=== PATIENT | female | born 1980 | race Caucasian/White ===

== ENCOUNTER 2017-05-10 11:17 | Day surgery (SDC) | payer OTHER ==
[~2017-05-10] VITALS: Ht 165.1 cm; Wt 59.9 kg
[~2017-05-10 11:17] MED LIST: ADVAIR 250/501 DISK IH; IMITREX100 MG PO; MOTRIN800 MG PO; PREDNISONE10 MG PO; PROVENTIL,2.5 MG/3 M IH; TOPAMAX50 MG PO; VENTOLIN HFA18 GM IH; VISTARIL50 MG PO; VITAMIN D-32000 UNI2 PO; VYVANSE40 MG PO
[2017-05-10 12:10] LABS: HEMATOCRIT 43.5 % (36.0-46.0); MCH 31.7 PG (29.0-34.0); MCHC 33.6 G/DL (30.0-36.0); MCV 94.6 FL (83-99); MEAN PLAT.VOLUME 8.3 uM^3 (9.5-12.4); PLATELET COUNT 388 K/uL (156-360); RBC DIS.WIDTH-CV 12.7 % (11.8-14.6); RBC DIS.WIDTH-SD 44.1 % (39-53); WHITE BLOOD COUNT 14.8 K/uL (4.1-10.2)
[2017-05-10 12:12] VITALS: BP 123/83
[2017-05-10 12:16] LABS: INTER. NORMALIZED RATIO 0.9; PROTHROMBIN TIME 10.6 SEC (10.2-12.9)
[2017-05-10 12:18] LABS: PTT 26.1 SEC (25-37)
[2017-05-10 12:25] LABS: TOTAL BILIRUBIN 0.3 mg/dL (0.0-1.0)
[2017-05-10 12:26] LABS: ALKALINE PHOSPHATASE 75 IU/L (3-129)
[2017-05-10 12:28] LABS: DIRECT BILIRUBIN 0.1 mg/dL (0.0-0.3)
[2017-05-10] MEDS ORDERED: OXAYDO5 MG PO (14:59)
[2017-05-10] MEDS ORDERED: MOTRIN600 MG PO ×2 (14:59→15:46)
[2017-05-10] MEDS ORDERED: ROXICODONE5 MG PO ×2 (15:01→15:46)
[2017-05-10] MEDS ORDERED: MOTRIN800 MG PO (15:03)
[2017-05-10 16:15] VITALS: BP 118/76
[2017-05-10 16:50] VITALS: BP 113/74
[2017-05-12 17:31] LABS: INTERNAL CONTROL VALID? YES
== END 2017-05-10 17:07 | disposition home or self-care (01) ==
LOC: SDC 11:17
PROVIDERS: Surgery
PROC: 0WUF0JZ Supplement Abdominal Wall with Synthetic Substitute, Open Approach (ICD-10-PCS; principal; 2017-05-10)
DX: K43.6 Other and unspecified ventral hernia with obstruction, without gangrene (principal); J45.909 Unspecified asthma, uncomplicated; K21.0 Gastro-esophageal reflux disease with esophagitis; B18.2 Chronic viral hepatitis C; F41.1 Generalized anxiety disorder; D63.8 Anemia in other chronic diseases classified elsewhere; F17.210 Nicotine dependence, cigarettes, uncomplicated
CPT/HCPCS: 80076; 84703; 85027; 85610; 85730; C1781; J0330; J0690; J1100; J1170; J1720; J1885; J2250; J2405; J3010; S0020

== ENCOUNTER 2017-05-20 23:04 | Inpatient (IN) | payer OTHER ==
[~2017-05-20] VITALS: Ht 162.6 cm; Wt 63.0 kg
[~2017-05-20 23:04] MED LIST changes: +MOTRIN600 MG PO; +OXAYDO5 MG PO; +ROXICODONE5 MG PO
[2017-05-21 00:05] LABS: HEMATOCRIT 43.7 % (36.0-46.0); MCH 31.6 PG (29.0-34.0); MCHC 34.1 G/DL (30.0-36.0); MCV 92.8 FL (83-99); MEAN PLAT.VOLUME 8.6 uM^3 (9.5-12.4); PLATELET COUNT 401 K/uL (156-360); RBC DIS.WIDTH-CV 12.1 % (11.8-14.6); RED BLOOD COUNT 4.71 M/uL (3.80-5.20); WHITE BLOOD COUNT 25.1 K/uL (4.1-10.2)
[2017-05-21 00:17] LABS: CHLORIDE 104 mEq/L (99-109); POTASSIUM 3.3 mEq/L (3.7-5.4); SODIUM 139 mEq/L (136-147)
[2017-05-21 00:19] LABS: GLUCOSE 104 mg/dL (70-99)
[2017-05-21 00:20] LABS: ANION GAP 12 MEQ/L (2-14)
[2017-05-21 00:21] LABS: TOTAL BILIRUBIN 0.5 mg/dL (0.0-1.0)
[2017-05-21 00:23] LABS: ALKALINE PHOSPHATASE 110 IU/L (3-129); GFR ESTIMATE (CALCULATED) > 59 mL/min/
[2017-05-21 00:24] LABS: UREA NITROGEN (BUN) 15 mg/dL (9-23)
[2017-05-21 00:32] LABS: QUANTITATIVE HCG < 4.0 MIU/ML
[2017-05-21 00:49] LABS: ADD MIUA? YES; BILIRUBIN NEGATIVE; BLOOD NEGATIVE; COLOR YELLOW ((YELLOW)); GLUCOSE (STRIP) NEGATIVE; KETONES NEGATIVE; LEUKOCYTES NEGATIVE; NITRITE NEGATIVE; PROTEIN (STRIP) 30; SPECIFIC GRAVITY 1.025 (1.000-1.030)
[2017-05-21 00:56] LABS: BACTERIA RARE /HPF; EPITHELIAL CELLS 1+ /HPF; MUCUS TRACE /LPF; UCUL ADDED? NO; WHITE BLOOD CELLS 0-5 /HPF (0-5)
[2017-05-21 08:00] VITALS: BP 90/53
[2017-05-21 13:23] LABS: HEMATOCRIT 37.1 % (36.0-46.0); MCH 30.9 PG (29.0-34.0); MCHC 32.6 G/DL (30.0-36.0); MCV 94.6 FL (83-99); MEAN PLAT.VOLUME 8.7 uM^3 (9.5-12.4); PLATELET COUNT 307 K/uL (156-360); RBC DIS.WIDTH-CV 12.1 % (11.8-14.6); RBC DIS.WIDTH-SD 42.3 % (39-53); RED BLOOD COUNT 3.92 M/uL (3.80-5.20); WHITE BLOOD COUNT 18.7 K/uL (4.1-10.2)
[2017-05-21 16:08] VITALS: BP 116/60
[2017-05-21 20:00] VITALS: BP 103/58
[2017-05-22] VITALS (7 sets, daily range): BP systolic 93–108; BP diastolic 52–67
[2017-05-22 09:49] LABS: HEMATOCRIT 36.8 % (36.0-46.0); MCH 30.6 PG (29.0-34.0); MCHC 32.3 G/DL (30.0-36.0); MCV 94.6 FL (83-99); MEAN PLAT.VOLUME 8.6 uM^3 (9.5-12.4); PLATELET COUNT 339 K/uL (156-360); RBC DIS.WIDTH-CV 12.3 % (11.8-14.6); RBC DIS.WIDTH-SD 42.5 % (39-53); RED BLOOD COUNT 3.89 M/uL (3.80-5.20); WHITE BLOOD COUNT 15.1 K/uL (4.1-10.2)
[2017-05-22] MEDS ORDERED: ADVAIR 250/501 DISK IH (15:04)
[2017-05-22 18:01] LABS: BICARBONATE 25.3 mEq/L (22-26); CARBOXY HGB 2.1 % (0-5); METHEMOGLOBIN 1.6 % (0-1.5); PCO2 48 mm Hg (35-45); PO2 58 mm Hg (80-100); pH 7.33 (7.35-7.45)
[2017-05-22 18:02] LABS: COMMENTS - BLOOD GASES C+; DEVICE AMBU; SITE RR
[2017-05-22 18:13] LABS: HEMATOCRIT 36.1 % (36.0-46.0); MCH 30.6 PG (29.0-34.0); MCHC 32.7 G/DL (30.0-36.0); MCV 93.8 FL (83-99); MEAN PLAT.VOLUME 8.4 uM^3 (9.5-12.4); PLATELET COUNT 424 K/uL (156-360); RBC DIS.WIDTH-CV 12.2 % (11.8-14.6); RBC DIS.WIDTH-SD 42.2 % (39-53); RED BLOOD COUNT 3.85 M/uL (3.80-5.20); WHITE BLOOD COUNT 18.7 K/uL (4.1-10.2)
[2017-05-22 18:22] LABS: POINT-OF-CARE METER ID UU14149397
[2017-05-22 18:27] LABS: ANION GAP 10 MEQ/L (2-14); CHLORIDE 108 MEQ/L (99-109); POTASSIUM 3.8 MEQ/L (3.7-5.4); SAMPLE HEMOLYSIS CHECK 0; SAMPLE ICTERIC CHECK 0; SAMPLE LIPEMIA CHECK 0; SODIUM 141 MEQ/L (136-147)
[2017-05-22 18:33] LABS: GFR ESTIMATE (CALCULATED) > 59 mL/min/; GLUCOSE 114 mg/dL (70-99); UREA NITROGEN (BUN) 9 mg/dL (9-23)
[2017-05-23 04:56] VITALS: BP 98/68
[2017-05-23 05:56] LABS: HEMATOCRIT 30.5 % (36.0-46.0); MCH 31.6 PG (29.0-34.0); MCHC 33.4 G/DL (30.0-36.0); MCV 94.4 FL (83-99); MEAN PLAT.VOLUME 8.7 uM^3 (9.5-12.4); PLATELET COUNT 365 K/uL (156-360); RBC DIS.WIDTH-CV 12.2 % (11.8-14.6); RBC DIS.WIDTH-SD 41.9 % (39-53); RED BLOOD COUNT 3.23 M/uL (3.80-5.20); WHITE BLOOD COUNT 13.6 K/uL (4.1-10.2)
[2017-05-23 06:08] VITALS: BP 105/68
[2017-05-23 06:29] LABS: ALKALINE PHOSPHATASE 165 IU/L (3-129); ANION GAP 8 MEQ/L (2-14); CHLORIDE 109 MEQ/L (99-109); DIRECT BILIRUBIN 0.2 mg/dL (0.0-0.3); GFR ESTIMATE (CALCULATED) > 59 mL/min/; GLUCOSE 98 mg/dL (70-99); POTASSIUM 3.4 MEQ/L (3.7-5.4); SAMPLE HEMOLYSIS CHECK 0; SAMPLE ICTERIC CHECK 0; SAMPLE LIPEMIA CHECK 0; SODIUM 141 MEQ/L (136-147); TOTAL BILIRUBIN 0.5 MG/DL (0.0-1.0); UREA NITROGEN (BUN) 9 mg/dL (9-23)
[2017-05-23 07:09] LABS: AMPHETAMINES QUANT VALUE 0 NG/ML; BARBITUATES QUANT VALUE 0 NG/ML; BENZODIAZEPINES QUANT VALUE 0 NG/ML; BENZODIAZEPINES, URINE SCREEN Negative (200 ng/mL); MARIJUANA QUANT VALUE 0 NG/ML; PHENCYCLIDINE QUANT VALUE 0 NG/ML
[2017-05-23] MEDS ORDERED: BACTRIM,SEPT1 TABLET PO (08:25)
[2017-05-23 09:10] VITALS: BP 101/56
== END 2017-05-23 16:08 | DRG 907 ==
LOC: EME 23:04 → 3EAST 05-21 02:34 → EDOF 05-21 02:34 → ENRESERV 05-21 02:57 → 4EAST 05-21 07:06 → ENRESERV 05-21 14:25 → 4EAST 05-21 15:23 → 3EAST 05-21 15:53
PROVIDERS: Hospitalist; Physician Assistant; Surgery
PROC: 0W9F3ZX Drainage of Abdominal Wall, Percutaneous Approach, Diagnostic (ICD-10-PCS; principal; 2017-05-21)
DX: L76.34 Postprocedural seroma of skin and subcutaneous tissue following other procedure (principal); R09.2 Respiratory arrest; L76.32 Postprocedural hematoma of skin and subcutaneous tissue following other procedure; T40.2X1A Poisoning by other opioids, accidental (unintentional), initial encounter; Y92.231 Patient bathroom in hospital as the place of occurrence of the external cause; Y83.8 Other surgical procedures as the cause of abnormal reaction of the patient, or of later complication, without mention of misadventure at the time of the procedure; B95.62 Methicillin resistant Staphylococcus aureus infection as the cause of diseases classified elsewhere; B19.20 Unspecified viral hepatitis C without hepatic coma; E87.6 Hypokalemia; F41.9 Anxiety disorder, unspecified; F17.210 Nicotine dependence, cigarettes, uncomplicated; F90.9 Attention-deficit hyperactivity disorder, unspecified type; K21.9 Gastro-esophageal reflux disease without esophagitis; J45.909 Unspecified asthma, uncomplicated
CPT/HCPCS: 36600; 71010; 74177; 75989; 80048; 80053; 80076; 80202; 80306 90; 81003; 82803; 82948; 83605; 84702; 85027; 87040; 87070; 87075; 87077; 87147; 87186; 87205; 94640; 94640 76; 99202; 99281; 99285; J1885; J2270; J2405; J2543; J3010; J3370; J7030; J7040; J7050; Q0177; S0028

== ENCOUNTER 2017-07-09 23:46 | Emergency (ER) | payer SELFPAY ==
[~2017-07-09] VITALS: Ht 165.1 cm; Wt 62.4 kg
[~2017-07-09 23:46] MED LIST changes: +BACTRIM,SEPT1 TABLET PO
[2017-07-10 00:20] LABS: HEMATOCRIT 37.5 % (36.0-46.0); HEMOGLOBIN 12.7 G/DL (11.9-15.5); MCH 30.5 PG (29.0-34.0); MCHC 33.9 G/DL (30.0-36.0); MCV 90.1 FL (83-99); PLATELET COUNT 397 K/uL (156-360); RBC DIS.WIDTH-SD 42.9 % (39-53); RED BLOOD COUNT 4.16 M/uL (3.80-5.20); WHITE BLOOD COUNT 9.4 K/uL (4.1-10.2)
[2017-07-10 00:35] LABS: ALBUMIN 4.4 g/dL (3.2-4.8); CHLORIDE 108 mEq/L (99-109); POTASSIUM 3.2 mEq/L (3.7-5.4); SODIUM 142 mEq/L (136-147)
[2017-07-10 00:37] LABS: GLUCOSE 109 mg/dL (70-99); TOTAL PROTEIN 7.7 g/dL (6.4-8.3)
[2017-07-10 00:39] LABS: TOTAL BILIRUBIN 0.2 mg/dL (0.0-1.0)
[2017-07-10 00:41] LABS: ALKALINE PHOSPHATASE 97 IU/L (3-129); CREATININE 0.8 mg/dL (0.6-1.3); GFR ESTIMATE (CALCULATED) > 59 mL/min/
[2017-07-10 00:42] LABS: UREA NITROGEN (BUN) 10 mg/dL (9-23)
[2017-07-10 00:43] LABS: AST (GOT) 26 IU/L (2-34)
[2017-07-10 00:44] LABS: ALT (GPT) 31 IU/L (3-49)
[2017-07-10 00:54] LABS: QUANTITATIVE HCG < 4.0 MIU/ML
[2017-07-10 01:15] LABS: APPEARANCE CLEAR ((CLEAR)); BILIRUBIN NEGATIVE; BLOOD MODERATE; COLOR YELLOW ((YELLOW)); GLUCOSE (STRIP) NEGATIVE; KETONES NEGATIVE; LEUKOCYTES NEGATIVE; NITRITE NEGATIVE; PROTEIN (STRIP) NEGATIVE; UROBILINOGEN 0.2 MG/DL (0.2-1.0)
[2017-07-10 01:32] LABS: BACTERIA NONE SEEN /HPF; EPITHELIAL CELLS RARE /HPF; MUCUS TRACE /LPF; RED BLOOD CELLS 0-5 /HPF (0-5); UCUL ADDED? NO; WHITE BLOOD CELLS 0-5 /HPF (0-5)
[2017-07-10 01:37] LABS: LIPASE 28 U/L (1.0-51.0)
[2017-07-10] MEDS ORDERED: ZOFRAN ODT4 MG PO (02:52)
[2017-07-10] MEDS ORDERED: FLAGYL500 MG PO (02:52)
[2017-07-10] MEDS ORDERED: CIPRO500 MG PO (02:52)
[2017-07-10] MEDS ORDERED: TORADOL10 MG PO (02:52)
[2017-07-10 03:13] VITALS: BP 122/84
== END 2017-07-10 03:18 | disposition home or self-care (01) ==
LOC: EME 23:46
DX: K50.00 Crohn's disease of small intestine without complications (principal); R11.2 Nausea with vomiting, unspecified; K43.9 Ventral hernia without obstruction or gangrene; Z90.49 Acquired absence of other specified parts of digestive tract; J45.909 Unspecified asthma, uncomplicated; F17.200 Nicotine dependence, unspecified, uncomplicated
CPT/HCPCS: 74177; 80053; 81003; 83690; 84702; 85027; 99281; 99284; J1885; J2405; J7030

== ENCOUNTER 2017-07-28 22:35 | Emergency (ER) | payer OTHER ==
[~2017-07-28] VITALS: Ht 162.6 cm; Wt 64.5 kg
[~2017-07-28 22:35] MED LIST changes: +CIPRO500 MG PO; +FLAGYL500 MG PO; +TORADOL10 MG PO; +ZOFRAN ODT4 MG PO
[2017-07-28 23:05] LABS: HEMATOCRIT 39.4 % (36.0-46.0); HEMOGLOBIN 12.9 G/DL (11.9-15.5); MCH 29.8 PG (29.0-34.0); MCHC 32.7 G/DL (30.0-36.0); PLATELET COUNT 332 K/uL (156-360); RBC DIS.WIDTH-CV 13.5 % (11.8-14.6); RBC DIS.WIDTH-SD 45.4 % (39-53); RED BLOOD COUNT 4.33 M/uL (3.80-5.20); WHITE BLOOD COUNT 10.7 K/uL (4.1-10.2)
[2017-07-28 23:29] LABS: ALBUMIN 4.2 G/DL (3.2-4.8); CHLORIDE 111 MEQ/L (99-109); POTASSIUM 3.3 MEQ/L (3.7-5.4); SODIUM 140 MEQ/L (136-147); TOTAL BILIRUBIN 0.2 MG/DL (0.0-1.0)
[2017-07-28 23:35] LABS: ALKALINE PHOSPHATASE 64 IU/L (3-129); ALT (GPT) 23 IU/L (3-49); AST (GOT) 28 IU/L (2-34); CREATININE 0.7 MG/DL (0.6-1.3); GFR ESTIMATE (CALCULATED) > 59 mL/min/; GLUCOSE 75 mg/dL (70-99); TOTAL PROTEIN 7.3 G/DL (6.4-8.3); UREA NITROGEN (BUN) 15 mg/dL (9-23)
[2017-07-28 23:38] LABS: QUANTITATIVE HCG < 4.0 MIU/ML
[2017-07-29 02:50] LABS: APPEARANCE CLEAR ((CLEAR)); BILIRUBIN NEGATIVE; BLOOD NEGATIVE; COLOR YELLOW ((YELLOW)); GLUCOSE (STRIP) NEGATIVE; KETONES NEGATIVE; LEUKOCYTES NEGATIVE; NITRITE NEGATIVE; PROTEIN (STRIP) NEGATIVE; SPECIFIC GRAVITY 1.021 (1.000-1.030); UCUL ADDED? NO; UROBILINOGEN 0.2 MG/DL (0.2-1.0)
[2017-07-29 03:42] LABS: LIPASE 51 U/L (1.0-51.0)
[2017-07-29] MEDS ORDERED: BENTYL10 MG PO (03:52)
[2017-07-29] MEDS ORDERED: ZOFRAN ODT4 MG PO (03:52)
[2017-07-29 04:02] VITALS: BP 115/82
== END 2017-07-29 04:03 | disposition home or self-care (01) ==
LOC: EME 22:35
DX: G89.18 Other acute postprocedural pain (principal); R10.13 Epigastric pain; R11.2 Nausea with vomiting, unspecified; R19.7 Diarrhea, unspecified; M54.9 Dorsalgia, unspecified; Z98.890 Other specified postprocedural states; K45.8 Other specified abdominal hernia without obstruction or gangrene; N83.201 Unspecified ovarian cyst, right side; J45.909 Unspecified asthma, uncomplicated; Z90.49 Acquired absence of other specified parts of digestive tract; F17.200 Nicotine dependence, unspecified, uncomplicated
CPT/HCPCS: 74176; 80053; 81003; 83690; 84702; 85027; 99281; 99284